=== PATIENT | female | born 1985 ===

== ENCOUNTER 2020-10-06 22:48 | Inpatient (IN) | payer BC ==
[2020-10-06] MEDS ORDERED: Sodium Chloride 0.9% 10 ML SDV IV PRN (23:25)
[2020-10-06] MEDS ORDERED: Nalbuphine 10 MG/1 ML Vial IVPUSH PRN (23:25)
[2020-10-06] MEDS ORDERED: Tranexamic Acid 1,000 MG in Sodium Chloride 0.9% 100 ML IV PRN (23:25)
[2020-10-06] MEDS ORDERED: Butorphanol 1 MG/ML SDV IVPUSH PRN (23:25)
[2020-10-06] MEDS ORDERED: Water For Irrigation,Sterile 1,000 ML Container IRR PRN (23:25)
[2020-10-06] MEDS ORDERED: Carboprost Tromethamine 250 MCG/1 ML Amp IM PRN (23:25)
[2020-10-06] MEDS ORDERED: Sodium Chloride 0.9% 10 ML Syringe FLUSH PRN (23:25)
[2020-10-06] MEDS ORDERED: Lidocaine 1% 50 ML MDV INJECT PRN (23:25)
[2020-10-06] MEDS ORDERED: Misoprostol 200 MCG Tab PO PRN (23:25)
[2020-10-06] MEDS ORDERED: Methylergonovine 0.2 MG/1 ML Amp IM PRN (23:25)
[2020-10-06] MEDS ORDERED: Ampicillin 2 GM in Sodium Chloride 0.9% 100 ML IV ONE (23:25)
[2020-10-06] MEDS ORDERED: Sodium Chloride 0.9% 2.5 ML Syringe FLUSH PRN (23:25)
[2020-10-06] MEDS ORDERED: Oxytocin/0.9 % Sodium Chloride 30 UNIT/500 ML BAG IV SCH (23:30)
[2020-10-06] MEDS ORDERED: Ampicillin 2 GM Vial ONE (23:43)
[2020-10-06] MEDS ORDERED: Sodium Chloride 0.9% 100 ML ONE (23:43)
[2020-10-06] MEDS: Lactated Ringers 1,000 ML IV SCH (23:45)
--- NOTE | 2020-10-06 23:55 | PCM.LDHP ---
L&D History of Present Illness - General Date of Service: 10/06/20 Admit Problem/Dx: Patient Status Order with Admit Dx/Problem 10/06/20 23:25 Patient Status [ADT] Routine Admission Diagnosis/Problem Admission Diagnosis/Problem - History of Present Illness Present Illness Comments:: 35yo at 39w3d presenting with contractions. Patient has been feeling contractions since this morning. She was monitored on L&D until 7PM and her cervix was 2 cm and did not make change. She reports continued to have strong regular contractions. Denies loss of fluid or vaginal bleeding. She is GBS+. Placenta has marginal cord insertion. She was COVID19 positive on 09/27, had mild symptoms with fatigue and myalgia. Her was also positive. Reports symptoms have improved and denies any fevers in the past 24hours. She has completed quarantine. She had otherwise uncomplicated . She had 2 normal term NSVDs prior. - Related Data Allergies/Adverse Reactions: Allergies Allergy/AdvReac Type Severity Reaction Status Date / Time No Known Allergies Allergy Verified 10/02/20 11:34 H&P Review of Systems - Review of Systems: Review Of Systems: See Below General: Reports: No Symptoms HEENT: Reports: No Symptoms Pulmonary: Reports: No Symptoms Cardiovascular: Reports: No Symptoms Gastrointestinal: Reports: No Symptoms Genitourinary: Reports: No Symptoms Musculoskeletal: Reports: No Symptoms Skin: Reports: No Symptoms Psychiatric: Reports: No Symptoms Neurological: Reports: No Symptoms Hematologic/Lymphatic: Reports: No Symptoms Immunologic: Reports: No Symptoms L&D Exam - Exam Exam: See Below - Vital Signs Weight: 207 lb - OB Specific Contraction Frequency (min): 3-5min Contraction Intensity: Moderate to Strong Heart Tones per Min: 130 Heart Rate (FHR) Variability: Moderate (6-25 bmp) - Exam General: Alert, Oriented, Cooperative, Mild Distress HEENT: Conjunctiva Clear, EACs Clear Neck: Supple, Trachea Midline Lungs: Clear to Auscultation, Normal Respiratory Effort Cardiovascular: Regular Rate, Regular Rhythm, Normal S1, Normal S2 GI/Abdominal Exam: Soft, Non-Tender, No Distention Genitourinary: Normal external exam, Other (3-4cm dilated per patient nurse) Back Exam: Normal Inspection, Full Range of Motion Extremities: Normal Inspection, Normal Range of Motion, Non-Tender, No Pedal Edema Skin: Warm, Dry, Intact Psychiatric: Alert, Normal Affect, Normal Mood Problem List Initiated/Reviewed/Updated: Yes Orders Last 24hrs: Active Orders 24 hr Category Date Time Status Patient Status [ADT] Routine ADT 10/06/20 23:25 Active Heart Tones [RC] CONTINUOUS Care 10/06/20 23:25 Active Non Stress Test [RC] PER UNIT ROUTINE Care 10/06/20 23:25 Active May Shower [RC] ASDIRECTED Care 10/06/20 23:25 Active Notify Provider [RC] PRN Care 10/06/20 23:25 Active Up ad Miranda [RC] ASDIRECTED Care 10/06/20 23:25 Active Vaginal Exam [RC] PRN Care 10/06/20 23:25 Active Vital Signs [RC] PER UNIT ROUTINE Care 10/06/20 23:25 Active CBC W/O DIFF,HEMOGRAM [HEME] Routine Lab 10/06/20 23:25 Ordered RPR (SYPHILIS SERO) W/ RFLX [REF] Routine Lab 10/06/20 23:25 Ordered TYPE AND SCREEN [BBK] Routine Lab 10/06/20 23:25 Ordered Ampicillin 2 gm Med 10/06/20 23:25 Active Sodium Chloride 0.9% [Normal Saline] 100 ml IV ONETIME Butorphanol [Stadol] Med 10/06/20 23:25 Active 1 mg IVPUSH Q1H PRN Carboprost Tromethamine [Hemabate DS] Med 10/06/20 23:25 Active 250 mcg IM ASDIRECTED PRN Lactated Ringers [Ringers, Lactated] 1,000 ml Med 10/06/20 23:30 Active IV ASDIRECTED Lidocaine 1% [Xylocaine 1%] Med 10/06/20 23:25 Active 50 ml INJECT ONETIME PRN Methylergonovine [Methergine] Med 10/06/20 23:25 Active 0.2 mg IM ASDIRECTED PRN Nalbuphine [Nubain] Med 10/06/20 23:25 Active 10 mg IVPUSH Q1H PRN Oxytocin/0.9 % Sodium Chloride [Oxytocin 30 Unit/500 ML Med 10/06/20 23:30 Active -NS] 30 unit in 500 ml IV TITRATE Sodium Chloride 0.9% [Normal Saline] Med 10/06/20 23:25 Active 10 ml IV ASDIRECTED PRN Sodium Chloride 0.9% [Saline Flush] Med 10/06/20 23:25 Active 10 ml FLUSH ASDIRECTED PRN Sodium Chloride 0.9% [Saline Flush] Med 10/06/20 23:25 Active 2.5 ml FLUSH ASDIRECTED PRN Tranexamic Acid [Cyklokapron] 1,000 mg Med 10/06/20 23:25 Active Sodium Chloride 0.9% [Normal Saline] 100 ml IV ONETIME Water For Irrigation,Sterile [Sterile Water for Med 10/06/20 23:25 Active Irrigation] 1,000 ml IRR ASDIRECTED PRN miSOPROStoL [Cytotec] Med 10/06/20 23:25 Active 200 mcg PO ONETIME PRN Scalp Electrode [WOMSER] Per Unit Routine Oth 10/06/20 23:25 Ordered Peripheral IV Insertion Adult [OM.PC] Routine Oth 10/06/20 23:25 Ordered Resuscitation Status Routine Resus Stat 10/06/20 23:25 Ordered Medication Orders Butorphanol Tartrate (Butorphanol 1 Mg/Ml Sdv) 1 mg IVPUSH Q1H PRN PRN Reason: Pain Carboprost Tromethamine (Carboprost Tromethamine 250 Mcg/1 Ml Amp) 250 mcg IM ASDIRECTED PRN PRN Reason: Post Hemorrhage Oxytocin/Sodium Chloride (Oxytocin 30 Unit/500 Ml-Ns) 30 unit in 500 mls @ 500 mls/hr IV TITRATE [facility] Tranexamic Acid 1,000 mg/ (Sodium Chloride) 110 mls @ 660 mls/hr IV ONETIME PRN PRN Reason: Bleeding Ampicillin Sodium 2 gm/ Sodium (Chloride) 100 mls @ 200 mls/hr IV ONETIME ONE Stop: 10/06/20 23:54 Lactated Ringer's (Ringers, Lactated) 1,000 mls @ 150 mls/hr IV ASDIRECTED [facility] Lidocaine HCl (Lidocaine 1% 50 Ml Mdv) 50 ml INJECT ONETIME PRN PRN Reason: Laceration repair Methylergonovine Maleate (Methylergonovine 0.2 Mg/1 Ml Amp) 0.2 mg IM ASDIRECTED PRN PRN Reason: Post Hemorrhage Misoprostol (Misoprostol 200 Mcg Tab) 200 mcg PO ONETIME PRN PRN Reason: Post Hemorrhage Nalbuphine HCl (Nalbuphine 10 Mg/1 Ml Vial) 10 mg IVPUSH Q1H PRN PRN Reason: Pain (severe 7-10) Sodium Chloride (Sodium Chloride 0.9% 10 Ml Syringe) 10 ml FLUSH ASDIRECTED PRN PRN Reason: Keep Vein Open Sodium Chloride (Sodium Chloride 0.9% 2.5 Ml Syringe) 2.5 ml FLUSH ASDIRECTED PRN PRN Reason: Keep Vein Open Sodium Chloride (Sodium Chloride 0.9% 10 Ml Sdv) 10 ml IV ASDIRECTED PRN PRN Reason: IV Use Sterile Water (Water For Irrigation,Sterile 1,000 Ml Container) 1,000 ml IRR ASDIRECTED PRN PRN Reason: delivery Assessment/Plan Comment:: 35yo at 38w3d presenting with labor. Patient has regular contractions and making cervical change. - Will admit to L&D, will complete CBC, T&S, RPR. - pelvic 3-4cm, membranes intact - Cat 1 tracing - GBS positive, will start ampicillin - COVID 19 positive on 09/27, symptoms improving, afebrile past 24hours. Completed quarantine. - desires epidural
[2020-10-07] MEDS ORDERED: Ropivacaine 0.2% PF 2 MG/ML 20 ML SDV ONE (00:37)
[2020-10-07] MEDS ORDERED: fentaNYL 100 MCG/2 ML SDV ONE (00:37)
[2020-10-07] MEDS ORDERED: Ropivacaine HCl/PF 100 ML ONE ×2 (00:37→10:20)
[2020-10-07] MEDS: Lactated Ringers 1,000 ML IV SCH ×2 (01:17→07:24)
--- NOTE | 2020-10-07 01:27 | PCM.PREANE ---
Preanesthetic Assessment - Anesthesia/Transfusion/Family Hx Anesthesia History: Prior Anesthesia Without Reaction Family History of Anesthesia Reaction: No Transfusion History: No Prior Transfusion(s) Intubation History: Unknown - Review of Systems General: No Symptoms Pulmonary: No Symptoms Cardiovascular: No Symptoms Gastrointestinal: No Symptoms Neurological: No Symptoms Other: Reports: Anxiety - Physical Assessment NPO Status Date: 10/07/20 NPO Status Time: 01:24 Height: 1.65 m Weight: 93.894 kg ASA Class: 2 Mental Status: Alert & Oriented x3 Airway Class: Mallampati = 2 Dentition: Reports: Normal Dentition Thyro-Mental Finger Breadths: 3 Mouth Opening Finger Breadths: 3 ROM/Head Extension: Full Lungs: Clear to Auscultation Cardiovascular: Regular Rate - Lab Values: Laboratory Last Values WBC 8.38 K/uL (4.0-11.0) 10/06/20 23: RBC 4.43 M/uL (4.30-5.90) 10/06/20 23:25 Hgb 12.9 g/dL (12.0-16.0) 10/06/20 23:25 Hct 38.1 % (36.0-46.0) 10/06/20 23:25 MCV 86.0 fL (80.0-98.0) 10/06/20 23:25 MCH 29.1 pg (27.0-32.0) 10/06/20 23: MCHC 33.9 g/dL (31.0-37.0) 10/06/20 23:25 RDW Std Deviation 45.0 fl (28.0-62.0) 10/06/20 23: RDW Coeff of Melinda 14 % (11.0-15.0) 10/06/20 23: Plt Count 323 K/uL (150-400) 10/06/20 23:25 MPV 9.30 fL (7.40-12.00) 10/06/20 23: Nucleated RBC % 0.0 /100WBC 10/06/20 23:25 Nucleated RBCs # 0 K/uL 10/06/20 23:25 Blood Type O POSITIVE 10/06/20 23: Antibody Screen NEGATIVE 10/06/20 23: - Allergies Allergies/Adverse Reactions: Allergies Allergy/AdvReac Type Severity Reaction Status Date / Time No Known Allergies Allergy Verified 10/02/20 11:34 - Blood Blood Available: No Product(s) Available: None - Anesthesia Plan Pre-Op Medication Ordered: None - Acknowledgements Anesthesia Type Planned: Epidural Pt an Appropriate Candidate for the Planned Anesthesia: Yes Alternatives and Risks of Anesthesia Discussed w Pt/Guardian: Yes Pt/Guardian Understands and Agrees with Anesthesia Plan: Yes Additional Comments: active labor. Pain 10/10 with contractions. Discussed, ? answered, chart reviewed, accepts, wishes to proceed, permit signed. PreAnesthesia Questionnaire - CURRENT (IN HOUSE) MEDS Current Meds: Current Medications Butorphanol Tartrate (Butorphanol 1 Mg/Ml Sdv) 1 mg IVPUSH Q1H PRN PRN Reason: Pain Carboprost Tromethamine (Carboprost Tromethamine 250 Mcg/1 Ml Amp) 250 mcg IM ASDIRECTED PRN PRN Reason: Post Hemorrhage Oxytocin/Sodium Chloride (Oxytocin 30 Unit/500 Ml-Ns) 30 unit in 500 mls @ 500 mls/hr IV TITRATE [facility] Tranexamic Acid 1,000 mg/ (Sodium Chloride) 110 mls @ 660 mls/hr IV ONETIME PRN PRN Reason: Bleeding Lactated Ringer's (Ringers, Lactated) 1,000 mls @ 150 mls/hr IV ASDIRECTED [facility] Last Admin: 10/07/20 01:17 Dose: 500 mls/hr Documented by: Lidocaine HCl (Lidocaine 1% 50 Ml Mdv) 50 ml INJECT ONETIME PRN PRN Reason: Laceration repair Methylergonovine Maleate (Methylergonovine 0.2 Mg/1 Ml Amp) 0.2 mg IM ASDIRECTED PRN PRN Reason: Post Hemorrhage Misoprostol (Misoprostol 200 Mcg Tab) 200 mcg PO ONETIME PRN PRN Reason: Post Hemorrhage Nalbuphine HCl (Nalbuphine 10 Mg/1 Ml Vial) 10 mg IVPUSH Q1H PRN PRN Reason: Pain (severe 7-10) Sodium Chloride (Sodium Chloride 0.9% 10 Ml Syringe) 10 ml FLUSH ASDIRECTED PRN PRN Reason: Keep Vein Open Sodium Chloride (Sodium Chloride 0.9% 2.5 Ml Syringe) 2.5 ml FLUSH ASDIRECTED PRN PRN Reason: Keep Vein Open Sodium Chloride (Sodium Chloride 0.9% 10 Ml Sdv) 10 ml IV ASDIRECTED PRN PRN Reason: IV Use Sterile Water (Water For Irrigation,Sterile 1,000 Ml Container) 1,000 ml IRR ASDIRECTED PRN PRN Reason: delivery Discontinued Medications Ampicillin Sodium (Ampicillin 2 Gm Vial) Confirm Administered Dose 2 gm .ROUTE .STK-MED ONE Stop: 10/06/20 23:44 Fentanyl (Fentanyl 100 Mcg/2 Ml Sdv) Confirm Administered Dose 100 mcg .ROUTE .STK-MED ONE Stop: 10/07/20 00:38 Ampicillin Sodium 2 gm/ Sodium (Chloride) 100 mls @ 200 mls/hr IV ONETIME ONE Stop: 10/06/20 23:54 Last Admin: 10/06/20 23:45 Dose: 200 mls/hr Documented by: Sodium Chloride (Normal Saline) Confirm Administered Dose 100 mls @ as directed .ROUTE .STK-MED ONE Stop: 10/06/20 23:44 Ropivacaine (Naropin 0.2%) Confirm Administered Dose 100 mls @ as directed .ROUTE .STK-MED ONE Stop: 10/07/20 00:38 Ropivacaine (Ropivacaine 0.2% Pf 2 Mg/Ml 20 Ml Sdv) Confirm Administered Dose 20 ml .ROUTE .STK-MED ONE Stop: 10/07/20 00:38
[2020-10-07] MEDS: Ampicillin 1 GM in Sodium Chloride 0.9% 50 ML IV SCH ×3 (03:10→11:00)
[2020-10-07] MEDS ORDERED: Oxytocin/0.9 % Sodium Chloride 30 UNIT/500 ML BAG IV SCH (09:30)
--- NOTE | 2020-10-07 10:32 | PCM.SN.2 ---
- Free Text/Narrative Note: Doing well. Replaced epidural bag. Analgesia good. Legs numb. Will continue same settings.
[2020-10-07 10:42] LABS: BLOOD UREA NITROGEN,BUN 6 mg/dL (7.0-18.0); CHLORIDE,CL 105 mmol/L (98-107); GLUCOSE RANDOM 80 mg/dL (74-106); POTASSIUM,K 3.2 mmol/L (3.5-5.1); SODIUM,NA 140 mmol/L (136-145)
[2020-10-07] MEDS ORDERED: Oxytocin 10 Units/1 ML SDV ONE (14:28)
[2020-10-07] MEDS ORDERED: Ibuprofen 400 MG Tab PO PRN (14:57)
[2020-10-07] MEDS ORDERED: Lanolin 100% Cream 7 GM Tube TOP PRN (14:57)
[2020-10-07] MEDS ORDERED: Witch Hazel Medicated Pads 40/Jar TOP PRN (14:57)
[2020-10-07] MEDS ORDERED: oxyCODONE 5 MG Tab PO PRN (14:57)
[2020-10-07] MEDS ORDERED: Benzocaine/Menthol 20%-0.5% Spray 78 GM Cannister TOP PRN (14:57)
[2020-10-07] MEDS ORDERED: Acetaminophen 500 MG Tab PO PRN ×2 (14:57)
[2020-10-07] MEDS ORDERED: Bisacodyl 10 MG Supp RECTAL PRN (14:57)
--- NOTE | 2020-10-07 15:05 | PCM.DEL ---
L & D Note - General Info Date of Service: 10/07/20 - Delivery Note Labor: Augmented by Oxytocin Delivery Outcome: Livebirth Delivery Method: Spontaneous Vaginal Delivery-Single Presentation: Left Occiput Anterior (SHANTI) Nuchal Cord: None Anesthesia Type: Combined Spinal Epidural Amniotic Fluid Description: Meconium Stained Episiotomy Type: None Laceration: None Placenta: Manual Removal Cord: 3 Vessels Estimated Blood Loss: 200 Resuscitation Needed: No Score 1 min: 8 Score 5 min: 9 Second Stage Interventions: Reports: Pushing Effectively Delivery Comments (Free Text/Narrative):: Live male delivered at 1407 , 8/9 , weight 3360g IM pitocin given due to infiltrated IV line Manual removal of placenta Marginal insertion of placenta cord - General Info Date of Service: 10/07/20 Admission Dx/Problem (Free Text): Patient Status Order with Admit Dx/Problem 10/06/20 23:25 Patient Status [ADT] Routine Admission Diagnosis/Problem Admission Diagnosis/Problem - Patient Data Weight - Most Recent: 93.894 kg I&O - Last 24 Hours: Intake & Output 10/07/20 10/07/20 10/07/20 06:59 14:59 22:59 Intake Total 1025 Balance 1025 Lab Results Last 24 Hours: Laboratory Results - last 24 hr 10/06/20 10/06/20 10/07/20 Range/Units 23:25 23:25 09:39 WBC 8.38 (4.0-11.0) K/uL RBC 4.43 (4.30-5.90) M/uL Hgb 12.9 (12.0-16.0) g/dL Hct 38.1 (36.0-46.0) % MCV 86.0 (80.0-98.0) fL MCH 29.1 (27.0-32.0) pg MCHC 33.9 (31.0-37.0) g/dL RDW Std Deviation 45.0 (28.0-62.0) fl RDW Coeff of Melinda 14 (11.0-15.0) % Plt Count 323 (150-400) K/uL MPV 9.30 (7.40-12.00) fL Nucleated RBC % 0.0 /100WBC Nucleated RBCs # 0 K/uL Sodium (136-145) mmol/L Potassium (3.5-5.1) mmol/L Chloride (98-107) mmol/L Carbon Dioxide (21.0-32.0) mmol/L BUN (7.0-18.0) mg/dL Creatinine (0.6-1.0) mg/dL Est Cr Clr Drug Dosing mL/min Estimated GFR (MDRD) ml/min Glucose (74-106) mg/dL Uric Acid (2.6-7.2) mg/dL Calcium (8.5-10.1) mg/dL Total Bilirubin (0.2-1.0) mg/dL AST (15-37) IU/L ALT (14-63) IU/L Alkaline Phosphatase (46-116) U/L Total Protein (6.4-8.2) g/dL Albumin (3.4-5.0) g/dL Globulin (2.6-4.0) g/dL Albumin/Globulin Ratio (0.9-1.6) Ur Random Creatinine 67.2 mg/dL U Random Total Protein 336.4 H (<11.9) mg/dL Protein/Creatinin Ratio 5.0 Blood Type O POSITIVE Antibody Screen NEGATIVE 10/07/20 Range/Units 09:57 WBC (4.0-11.0) K/uL RBC (4.30-5.90) M/uL Hgb (12.0-16.0) g/dL Hct (36.0-46.0) % MCV (80.0-98.0) fL MCH (27.0-32.0) pg MCHC (31.0-37.0) g/dL RDW Std Deviation (28.0-62.0) fl RDW Coeff of Melinda (11.0-15.0) % Plt Count (150-400) K/uL MPV (7.40-12.00) fL Nucleated RBC % /100WBC Nucleated RBCs # K/uL Sodium 140 (136-145) mmol/L Potassium 3.2 L (3.5-5.1) mmol/L Chloride 105 (98-107) mmol/L Carbon Dioxide 23.0 (21.0-32.0) mmol/L BUN 6 L (7.0-18.0) mg/dL Creatinine 1.0 (0.6-1.0) mg/dL Est Cr Clr Drug Dosing 72.00 mL/min Estimated GFR (MDRD) > 60.0 ml/min Glucose 80 (74-106) mg/dL Uric Acid 3.8 (2.6-7.2) mg/dL Calcium 8.6 (8.5-10.1) mg/dL Total Bilirubin 0.5 (0.2-1.0) mg/dL AST 42 H (15-37) IU/L ALT 82 H (14-63) IU/L Alkaline Phosphatase 239 H (46-116) U/L Total Protein 6.8 (6.4-8.2) g/dL Albumin 2.2 L (3.4-5.0) g/dL Globulin 4.6 H (2.6-4.0) g/dL Albumin/Globulin Ratio 0.5 L (0.9-1.6) Ur Random Creatinine mg/dL U Random Total Protein (<11.9) mg/dL Protein/Creatinin Ratio Blood Type Antibody Screen Med Orders - Current: Current Medications Acetaminophen (Acetaminophen 500 Mg Tab) 500 mg PO Q4H PRN PRN Reason: Pain Acetaminophen (Acetaminophen 500 Mg Tab) 1,000 mg PO Q4H PRN PRN Reason: Pain Benzocaine/Menthol (Benzocaine/Menthol 20%-0.5% [place] 78 Gm Cannister) 78 gm TOP ASDIRECTED PRN PRN Reason: Perineal Comfort Measure Bisacodyl (Bisacodyl 10 Mg Supp) 10 mg RECTAL ONETIME PRN PRN Reason: Constipation Butorphanol Tartrate (Butorphanol 1 Mg/Ml Sdv) 1 mg IVPUSH Q1H PRN PRN Reason: Pain Carboprost Tromethamine (Carboprost Tromethamine 250 Mcg/1 Ml Amp) 250 mcg IM ASDIRECTED PRN PRN Reason: Post Hemorrhage Docusate Sodium (Docusate Sodium 100 Mg Cap) 100 mg PO BID PRN PRN Reason: Constipation Emollient Ointment (Lanolin 100% Cream 7 Gm Tube) 0 gm TOP ASDIRECTED PRN PRN Reason: Sore Nipples Oxytocin/Sodium Chloride (Oxytocin 30 Unit/500 Ml-Ns) 30 unit in 500 mls @ 500 mls/hr IV TITRATE [facility] Tranexamic Acid 1,000 mg/ (Sodium Chloride) 110 mls @ 660 mls/hr IV ONETIME PRN PRN Reason: Bleeding Lactated Ringer's (Ringers, Lactated) 1,000 mls @ 150 mls/hr IV ASDIRECTED [facility] Last Admin: 10/07/20 07:24 Dose: 150 mls/hr Documented by: Oxytocin/Sodium Chloride (Oxytocin 30 Unit/500 Ml-Ns) 30 unit in 500 mls @ 2 mls/hr IV TITRATE [facility]; Protocol Last Infusion: 10/07/20 13:44 Dose: 14 munits/min, 14 mls/hr Documented by: Ibuprofen (Ibuprofen 400 Mg Tab) 400 mg PO Q4H PRN PRN Reason: Pain Ibuprofen (Ibuprofen 800 Mg Tab) 800 mg PO Q6H PRN PRN Reason: Pain Lidocaine HCl (Lidocaine 1% 50 Ml Mdv) 50 ml INJECT ONETIME PRN PRN Reason: Laceration repair Methylergonovine Maleate (Methylergonovine 0.2 Mg/1 Ml Amp) 0.2 mg IM ASDIRECTED PRN PRN Reason: Post Hemorrhage Misoprostol (Misoprostol 200 Mcg Tab) 200 mcg PO ONETIME PRN PRN Reason: Post Hemorrhage Nalbuphine HCl (Nalbuphine 10 Mg/1 Ml Vial) 10 mg IVPUSH Q1H PRN PRN Reason: Pain (severe 7-10) Oxycodone HCl (Oxycodone 5 Mg Tab) 5 mg PO Q2H PRN PRN Reason: Pain Sodium Chloride (Sodium Chloride 0.9% 10 Ml Syringe) 10 ml FLUSH ASDIRECTED PRN PRN Reason: Keep Vein Open Sodium Chloride (Sodium Chloride 0.9% 2.5 Ml Syringe) 2.5 ml FLUSH ASDIRECTED PRN PRN Reason: Keep Vein Open Sodium Chloride (Sodium Chloride 0.9% 10 Ml Sdv) 10 ml IV ASDIRECTED PRN PRN Reason: IV Use Sterile Water (Water For Irrigation,Sterile 1,000 Ml Container) 1,000 ml IRR ASDIRECTED PRN PRN Reason: delivery Witch Nydia (Witch Nydia Medicated Pads 40/Jar) 1 pad TOP ASDIRECTED PRN PRN Reason: comfort care Discontinued Medications Ampicillin Sodium (Ampicillin 2 Gm Vial) Confirm Administered Dose 2 gm .ROUTE .STK-MED ONE Stop: 10/06/20 23:44 Fentanyl (Fentanyl 100 Mcg/2 Ml Sdv) Confirm Administered Dose 100 mcg .ROUTE .STK-MED ONE Stop: 10/07/20 00:38 Ampicillin Sodium 2 gm/ Sodium (Chloride) 100 mls @ 200 mls/hr IV ONETIME ONE Stop: 10/06/20 23:54 Last Admin: 10/06/20 23:45 Dose: 200 mls/hr Documented by: Sodium Chloride (Normal Saline) Confirm Administered Dose 100 mls @ as directed .ROUTE .STK-MED ONE Stop: 10/06/20 23:44 Ropivacaine (Naropin 0.2%) Confirm Administered Dose 100 mls @ as directed .ROUTE .STK-MED ONE Stop: 10/07/20 00:38 Ampicillin Sodium 1 gm/ Sodium (Chloride) 50 mls @ 100 mls/hr IV Q4H [facility] Last Admin: 10/07/20 11:00 Dose: 100 mls/hr Documented by: Ropivacaine (Naropin 0.2%) Confirm Administered Dose 100 mls @ as directed .ROUTE .STK-MED ONE Stop: 10/07/20 10:21 Oxytocin (Oxytocin 10 Units/1 Ml Sdv) Confirm Administered Dose 10 unit .ROUTE .STK-MED ONE Stop: 10/07/20 14:29 Ropivacaine (Ropivacaine 0.2% Pf 2 Mg/Ml 20 Ml Sdv) Confirm Administered Dose 20 ml .ROUTE .STK-MED ONE Stop: 10/07/20 00:38 - Problem List & Annotations (1) Vaginal delivery SNOMED Code(s): 948991713 Code(s): O80 - ENCOUNTER FOR FULL-TERM UNCOMPLICATED DELIVERY Status: Acute Current Visit: Yes - Problem List Review Problem List Initiated/Reviewed/Updated: Yes - My Orders Last 24 Hours: My Active Orders 10/07/20 09:30 Oxytocin/0.9 % Sodium Chloride [Oxytocin 30 Unit/500 ML-NS] 30 unit in 500 ml IV TITRATE 10/07/20 14:57 Patient Status [ADT] Routine May Shower [RC] ASDIRECTED Up ad Miranda [RC] ASDIRECTED Vital Signs [RC] PER UNIT ROUTINE Acetaminophen [Tylenol Extra Strength] 1,000 mg PO Q4H PRN Acetaminophen [Tylenol Extra Strength] 500 mg PO Q4H PRN Benzocaine/Menthol [Dermoplast Pain Relief 20%-0.5% [place]] 78 gm TOP ASDIRECTED PRN Docusate Sodium [Colace] 100 mg PO BID PRN Ibuprofen [Motrin] 400 mg PO Q4H PRN Ibuprofen [Motrin] 800 mg PO Q6H PRN Lanolin [Lansinoh HPA] See Dose Instructions TOP ASDIRECTED PRN bisacodyL [Dulcolax] 10 mg RECTAL ONETIME PRN oxyCODONE 5 mg PO Q2H PRN witch Nydia [Tucks] 1 pad TOP ASDIRECTED PRN Assess Lochia [WOMSER] Per Unit Routine Assess Uterine Involution [WOMSER] Per Unit Routine Peripheral IV Discontinue [OM.PC] Routine Resuscitation Status Routine 10/07/20 14:59 BLOOD GAS ARTERIAL UMBILICAL [BG] Routine BLOOD GAS VENOUS UMBILICAL [BG] Routine 10/08/20 05:11 BASIC METABOLIC PANEL,BMP [CHEM] AM CBC WITH AUTO DIFF [HEME] AM - Assessment Assessment:: 35yo @ 38w4d , s/p with Manual removal of placenta now Para 3 Mild Preclampsia ( Elevated PCR AST and ALT , normal creatinine Covid Positive ( 09/27) Normal [place] Rubella Immune GBS positive received ampicillin
[2020-10-07] MEDS: ceFAZolin 2 GM in Premix Bag 1 BAG IV SCH ×2 (15:59→23:54)
[2020-10-07] MEDS: Docusate Sodium 100 MG Cap PO PRN (17:00)
[2020-10-07] MEDS: Ibuprofen 800 MG Tab PO PRN (22:53)
[2020-10-08] MEDS: Ibuprofen 800 MG Tab PO PRN (05:15)
[2020-10-08 06:22] LABS: BLOOD UREA NITROGEN,BUN 10 mg/dL (7.0-18.0); CARBON DIOXIDE,CO2 24.1 mmol/L (21.0-32.0); CHLORIDE,CL 108 mmol/L (98-107); GLUCOSE RANDOM 78 mg/dL (74-106); POTASSIUM,K 3.1 mmol/L (3.5-5.1); SODIUM,NA 142 mmol/L (136-145)
--- NOTE | 2020-10-08 06:58 | PCM48HPAN ---
Post Anesthesia Note - EVALUATION WITHIN 48HRS OF ANESTHETIC Vital Signs in Normal Range: Yes Patient Participated in Evaluation: Yes Respiratory Function Stable: Yes Airway Patent: Yes Cardiovascular Function Stable: Yes Hydration Status Stable: Yes Pain Control Satisfactory: Yes Nausea and Vomiting Control Satisfactory: Yes Mental Status Recovered: Yes Vital Signs: Last Vital Signs Temp 36.4 C 10/08/20 04:15 Pulse 76 10/08/20 04:15 Resp 16 10/08/20 04:15 BP 112/73 10/08/20 04:15 Pulse Ox 97 10/08/20 04:15
[2020-10-08] MEDS: ceFAZolin 2 GM in Premix Bag 1 BAG IV SCH (08:31)
--- NOTE | 2020-10-08 11:00 | PCM.PNPP ---
- General Info Date of Service: 10/08/20 Admission Dx/Problem (Free Text): Patient Status Order with Admit Dx/Problem Subjective Update: Patient seen at bedside , she is ambulating , voiding and tolerating regular diet She denies any headache , RUQ pain and BV She is and supplementing Functional Status: Reports: Pain Controlled, Tolerating Diet, Ambulating, Urinating - Review of Systems General: Reports: No Symptoms HEENT: Reports: No Symptoms Pulmonary: Reports: No Symptoms Cardiovascular: Reports: No Symptoms Gastrointestinal: Reports: No Symptoms Genitourinary: Reports: No Symptoms Musculoskeletal: Reports: No Symptoms Skin: Reports: No Symptoms Neurological: Reports: No Symptoms Psychiatric: Reports: No Symptoms - General Info Date of Service: 10/08/20 - Patient Data Vital Signs - Most Recent: Last Vital Signs Temp 36.4 C 10/08/20 04:15 Pulse 76 10/08/20 04:15 Resp 16 10/08/20 04:15 BP 112/73 10/08/20 04:15 Pulse Ox 97 10/08/20 04:15 Weight - Most Recent: 93.894 kg I&O - Last 24 Hours: Intake & Output 10/07/20 10/08/20 10/08/20 22:59 06:59 14:59 Output Total 700 Balance -700 Lab Results - Last 24 Hours: Laboratory Results - last 24 hr 10/07/20 10/07/20 10/08/20 Range/Units 09:57 14:07 05:25 WBC 17.58 H (4.0-11.0) K/uL RBC 3.81 L (4.30-5.90) M/uL Hgb 11.1 L (12.0-16.0) g/dL Hct 33.1 L (36.0-46.0) % MCV 86.9 (80.0-98.0) fL MCH 29.1 (27.0-32.0) pg MCHC 33.5 (31.0-37.0) g/dL RDW Std Deviation 46.6 (28.0-62.0) fl RDW Coeff of Melinda 15 (11.0-15.0) % Plt Count 289 (150-400) K/uL MPV 9.10 (7.40-12.00) fL Neut % (Auto) 68.5 (48.0-80.0) % Lymph % (Auto) 17.7 (16.0-40.0) % [place] % (Auto) 13.4 (0.0-15.0) % Eos % (Auto) 0.3 (0.0-7.0) % Baso % (Auto) 0.1 (0.0-1.5) % Neut # (Auto) 12.1 H (1.4-5.7) K/uL Lymph # (Auto) 3.1 H (0.6-2.4) K/uL [place] # (Auto) 2.4 H (0.0-0.8) K/uL Eos # (Auto) 0.1 (0.0-0.7) K/uL Baso # (Auto) 0.0 (0.0-0.1) K/uL Nucleated RBC % 0.0 /100WBC Nucleated RBCs # 0 K/uL Cord VBG pH 7.40 (7.25-7.45) Cord VBG Base Excess -7 (-10--2) Sodium 140 (136-145) mmol/L Potassium 3.2 L (3.5-5.1) mmol/L Chloride 105 (98-107) mmol/L Carbon Dioxide 23.0 (21.0-32.0) mmol/L BUN 6 L (7.0-18.0) mg/dL Creatinine 1.0 (0.6-1.0) mg/dL Est Cr Clr Drug Dosing 72.00 mL/min Estimated GFR (MDRD) > 60.0 ml/min Glucose 80 (74-106) mg/dL Uric Acid 3.8 (2.6-7.2) mg/dL Calcium 8.6 (8.5-10.1) mg/dL Total Bilirubin 0.5 (0.2-1.0) mg/dL AST 42 H (15-37) IU/L ALT 82 H (14-63) IU/L Alkaline Phosphatase 239 H (46-116) U/L Total Protein 6.8 (6.4-8.2) g/dL Albumin 2.2 L (3.4-5.0) g/dL Globulin 4.6 H (2.6-4.0) g/dL Albumin/Globulin Ratio 0.5 L (0.9-1.6) 04/24/21 Range/Units 05:25 WBC (4.0-11.0) K/uL RBC (4.30-5.90) M/uL Hgb (12.0-16.0) g/dL Hct (36.0-46.0) % MCV (80.0-98.0) fL MCH (27.0-32.0) pg MCHC (31.0-37.0) g/dL RDW Std Deviation (28.0-62.0) fl RDW Coeff of Melinda (11.0-15.0) % Plt Count (150-400) K/uL MPV (7.40-12.00) fL Neut % (Auto) (48.0-80.0) % Lymph % (Auto) (16.0-40.0) % [place] % (Auto) (0.0-15.0) % Eos % (Auto) (0.0-7.0) % Baso % (Auto) (0.0-1.5) % Neut # (Auto) (1.4-5.7) K/uL Lymph # (Auto) (0.6-2.4) K/uL [place] # (Auto) (0.0-0.8) K/uL Eos # (Auto) (0.0-0.7) K/uL Baso # (Auto) (0.0-0.1) K/uL Nucleated RBC % /100WBC Nucleated RBCs # K/uL Cord VBG pH (7.25-7.45) Cord VBG Base Excess (-10--2) Sodium 142 (136-145) mmol/L Potassium 3.1 L (3.5-5.1) mmol/L Chloride 108 H (98-107) mmol/L Carbon Dioxide 24.1 (21.0-32.0) mmol/L BUN 10 (7.0-18.0) mg/dL Creatinine 0.9 (0.6-1.0) mg/dL Est Cr Clr Drug Dosing 80.00 mL/min Estimated GFR (MDRD) > 60.0 ml/min Glucose 78 (74-106) mg/dL Uric Acid (2.6-7.2) mg/dL Calcium 8.6 (8.5-10.1) mg/dL Total Bilirubin (0.2-1.0) mg/dL AST (15-37) IU/L ALT (14-63) IU/L Alkaline Phosphatase (46-116) U/L Total Protein (6.4-8.2) g/dL Albumin (3.4-5.0) g/dL Globulin (2.6-4.0) g/dL Albumin/Globulin Ratio (0.9-1.6) Med Orders - Current: Current Medications Acetaminophen (Acetaminophen 500 Mg Tab) 500 mg PO Q4H PRN PRN Reason: Pain Acetaminophen (Acetaminophen 500 Mg Tab) 1,000 mg PO Q4H PRN PRN Reason: Pain Last Admin: 10/07/20 20:54 Dose: 1,000 mg Documented by: Benzocaine/Menthol (Benzocaine/Menthol 20%-0.5% [place] 78 Gm Cannister) 78 gm TOP ASDIRECTED PRN PRN Reason: Perineal Comfort Measure Last Admin: 10/07/20 17:00 Dose: 1 bottle Documented by: Bisacodyl (Bisacodyl 10 Mg Supp) 10 mg RECTAL ONETIME PRN PRN Reason: Constipation Butorphanol Tartrate (Butorphanol 1 Mg/Ml Sdv) 1 mg IVPUSH Q1H PRN PRN Reason: Pain Carboprost Tromethamine (Carboprost Tromethamine 250 Mcg/1 Ml Amp) 250 mcg IM ASDIRECTED PRN PRN Reason: Post Hemorrhage Docusate Sodium (Docusate Sodium 100 Mg Cap) 100 mg PO BID PRN PRN Reason: Constipation Emollient Ointment (Lanolin 100% Cream 7 Gm Tube) 0 gm TOP ASDIRECTED PRN PRN Reason: Sore Nipples Last Admin: 10/07/20 17:00 Dose: 1 applic Documented by: Oxytocin/Sodium Chloride (Oxytocin 30 Unit/500 Ml-Ns) 30 unit in 500 mls @ 500 mls/hr IV TITRATE LAVONNE Tranexamic Acid 1,000 mg/ (Sodium Chloride) 110 mls @ 660 mls/hr IV ONETIME PRN PRN Reason: Bleeding Lactated Ringer's (Ringers, Lactated) 1,000 mls @ 150 mls/hr IV ASDIRECTED LAVONNE Last Admin: 10/07/20 07:24 Dose: 150 mls/hr Documented by: Oxytocin/Sodium Chloride (Oxytocin 30 Unit/500 Ml-Ns) 30 unit in 500 mls @ 2 ml s/hr IV TITRATE LAVONNE; Protocol Last Infusion: 10/07/20 13:44 Dose: 14 munits/min, 14 mls/hr Documented by: Ibuprofen (Ibuprofen 400 Mg Tab) 400 mg PO Q4H PRN PRN Reason: Pain Ibuprofen (Ibuprofen 800 Mg Tab) 800 mg PO Q6H PRN PRN Reason: Pain Last Admin: 10/08/20 05:15 Dose: 800 mg Documented by: Lidocaine HCl (Lidocaine 1% 50 Ml Mdv) 50 ml INJECT ONETIME PRN PRN Reason: Laceration repair Methylergonovine Maleate (Methylergonovine 0.2 Mg/1 Ml Amp) 0.2 mg IM ASDIRECTED PRN PRN Reason: Post Hemorrhage Misoprostol (Misoprostol 200 Mcg Tab) 200 mcg PO ONETIME PRN PRN Reason: Post Hemorrhage Nalbuphine HCl (Nalbuphine 10 Mg/1 Ml Vial) 10 mg IVPUSH Q1H PRN PRN Reason: Pain (severe 7-10) Oxycodone HCl (Oxycodone 5 Mg Tab) 5 mg PO Q2H PRN PRN Reason: Pain Sodium Chloride (Sodium Chloride 0.9% 10 Ml Syringe) 10 ml FLUSH ASDIRECTED PRN PRN Reason: Keep Vein Open Sodium Chloride (Sodium Chloride 0.9% 2.5 Ml Syringe) 2.5 ml FLUSH ASDIRECTED PRN PRN Reason: Keep Vein Open Sodium Chloride (Sodium Chloride 0.9% 10 Ml Sdv) 10 ml IV ASDIRECTED PRN PRN Reason: IV Use Sterile Water (Water For Irrigation,Sterile 1,000 Ml Container) 1,000 ml IRR ASDIRECTED PRN PRN Reason: delivery Witch Nydia (Witch Nydia Medicated Pads 40/Jar) 1 pad TOP ASDIRECTED PRN PRN Reason: comfort care Last Admin: 10/07/20 16:59 Dose: 1 applic Documented by: Discontinued Medications Ampicillin Sodium (Ampicillin 2 Gm Vial) Confirm Administered Dose 2 gm .ROUTE .STK-MED ONE Stop: 10/06/20 23:44 Fentanyl (Fentanyl 100 Mcg/2 Ml Sdv) Confirm Administered Dose 100 mcg .ROUTE .STK-MED ONE Stop: 10/07/20 00:38 Ampicillin Sodium 2 gm/ Sodium (Chloride) 100 mls @ 200 mls/hr IV ONETIME ONE Stop: 10/06/20 23:54 Last Admin: 10/06/20 23:45 Dose: 200 mls/hr Documented by: Sodium Chloride (Normal Saline) Confirm Administered Dose 100 mls @ as directed .ROUTE .STK-MED ONE Stop: 10/06/20 23:44 Ropivacaine (Naropin 0.2%) Confirm Administered Dose 100 mls @ as directed .R OUTE .STK-MED ONE Stop: 10/07/20 00:38 Ampicillin Sodium 1 gm/ Sodium (Chloride) 50 mls @ 100 mls/hr IV Q4H [facility] Last Admin: 10/07/20 11:00 Dose: 100 mls/hr Documented by: Ropivacaine (Naropin 0.2%) Confirm Administered Dose 100 mls @ as directed .ROUTE .STK-MED ONE Stop: 10/07/20 10:21 Cefazolin Sodium/Dextrose 2 gm (/ Premix) 50 mls @ 100 mls/hr IV Q8H LAVONNE Stop: 10/08/20 08:14 Last Admin: 10/08/20 08:31 Dose: 100 mls/hr Documented by: Oxytocin (Oxytocin 10 Units/1 Ml Sdv) Confirm Administered Dose 10 unit .ROUTE .STK-MED ONE Stop: 10/07/20 14:29 Last Admin: 10/07/20 14:30 Dose: 10 unit Documented by: Ropivacaine (Ropivacaine 0.2% Pf 2 Mg/Ml 20 Ml Sdv) Confirm Administered Dose 20 ml .ROUTE .STK-MED ONE Stop: 10/07/20 00:38 - Recovery Exam Fundal Tone: Firm Fundal Level: At Umbilicus Fundal Placement: Midline Lochia Amount: Scant Lochia Color: Rubra/Red Perineum Description: Intact, Minimal Bruising/Swelling Episiotomy/Laceration: None Bladder Status: Voiding Urinary Elimination: Voided - Exam General: Alert HEENT: Pupils Equal Neck: Supple Lungs: Clear to Auscultation Cardiovascular: Regular Rate, Regular Rhythm GI/Abdominal Exam: Normal Bowel Sounds Extremities: Normal Inspection Neurological: No New Focal Deficit Psy/Mental Status: Alert - Problem List & Annotations (1) Vaginal delivery SNOMED Code(s): 340104926 Code(s): O80 - ENCOUNTER FOR FULL-TERM UNCOMPLICATED DELIVERY Status: Acute Current Visit: Yes - Problem List Review Problem List Initiated/Reviewed/Updated: Yes - My Orders Last 24 Hours: My Active Orders 10/07/20 14:57 Patient Status [ADT] Routine May Shower [RC] ASDIRECTED Vital Signs [RC] PER UNIT ROUTINE Acetaminophen [Tylenol Extra Strength] 1,000 mg PO Q4H PRN Acetaminophen [Tylenol Extra Strength] 500 mg PO Q4H PRN Benzocaine/Menthol [Dermoplast Pain Relief 20%-0.5% [place]] 78 gm TOP ASDIRECTED PRN Docusate Sodium [Colace] 100 mg PO BID PRN Ibuprofen [Motrin] 400 mg PO Q4H PRN Ibuprofen [Motrin] 800 mg PO Q6H PRN Lanolin [Lansinoh HPA] See Dose Instructions TOP ASDIRECTED PRN bisacodyL [Dulcolax] 10 mg RECTAL ONETIME PRN oxyCODONE 5 mg PO Q2H PRN witch Nydia [Tucks] 1 pad TOP ASDIRECTED PRN Assess Lochia [WOMSER] Per Unit Routine Assess Uterine Involution [WOMSER] Per Unit Routine Peripheral IV Discontinue [OM.PC] Routine Resuscitation Status Routine 10/08/20 10:52 HEPATIC FUNCTION PANEL,HFP [CHEM] Routine - Assessment Assessment:: 35yo P3 s/p with Manual removal of placenta , PPD 1 , Normal BPs Mild Preclampsia - Normal BPs today Cr: 0.9 , LFT pending - Plan Plan:: Routine Preclamspsia precautions discussed , BP check in 1 week Pain control with tylenol and motrin Discharge home today
[2020-10-08 11:08] LABS: BILIRUBIN INDIRECT 0.2
[2020-10-08] MEDS: Docusate Sodium 100 MG Cap PO PRN (18:45)
--- NOTE | 2020-10-10 13:09 | OR ---
SURGEON: TRACEY CUNHA DATE OF PROCEDURE: 10/07/2020 PREOPERATIVE DIAGNOSES: 1. A 35-year-old G3, P2-0-0-2 at 38 weeks and 4 days in active labor, mild preeclampsia. 2. The patient was also group B streptococcus positive. 3. Also history of COVID positive on 09/27, asymptomatic. POSTOPERATIVE DIAGNOSES: 1. A 35-year-old G3, P2-0-0-2 at 38 weeks and 4 days in active labor, mild preeclampsia. 2. The patient was also group B streptococcus positive. 3. Also history of COVID positive on 09/27, asymptomatic. 4. Also marginal placenta. PROCEDURES: 1. Normal spontaneous vaginal delivery. 2. Manual removal of placenta. ESTIMATED BLOOD LOSS: 300. INTRAVENOUS FLUIDS: IM Pitocin given. NOTES AND FINDINGS: A live male delivered at 1407. scores are 8 and 9, weight is 3360 g. BRIEF HISTORY ABOUT THE PATIENT: She was 38-4/7 days, came in complaining of contraction. She was observed, and she was noted to be about 4 cm to 5 cm dilated. She was GBS positive, and she also had a history of recent COVID infection on 09/27. O2 saturation was normal. She received ampicillin for GBS prophylaxis. The patient was monitored, and she was noted to SROM on her own. The patient remained about 4 cm to 5 cm for about 3 to 4 hours. As a result, an IUPC was placed and Pitocin was started, and the patient then became fully dilated. Within the labor course, the patient was noted to have blood pressures of 130s to 150s over 80s to 90s. She denied any headache or blurry vision. PIH labs were done. She had elevated AST, ALT, and the protein-creatinine ratio was increased. DESCRIPTION OF PROCEDURE: With the patient being fully dilated, she was encouraged to push. With good pushing effort, she delivered the head, subsequently the anterior and posterior shoulder. The body of the baby was delivered. was placed on maternal abdomen. Cord clamping was performed. Cord blood gases were obtained. Placenta was attempted to be removed via controlled cord traction, but there was difficulty in removing the placenta, also the IV line was not working, so IM Pitocin 10 IM was given. With manual removal, the placenta was removed intact, looked and inspected, and was noted to be intact with a marginal insertion. After delivery of the placenta, perineum was inspected and was noted to be intact. The patient tolerated the procedure well. All instrument and pad counts were correct x2. RAMON RUBIO /[id number]
== END 2020-10-08 18:45 | disposition home or self-care (01) | DRG 560 ==
LOC: MW.OBCHECK 22:48 → MW.OB 22:52 → MW.OBCHECK 23:25 → OBSVTOIN 10-07 14:57 → MW.OB 10-07 17:47
PROVIDERS: ADMIT Obstetrics & Gynecology; ATTEND Obstetrics & Gynecology
PROC: 10E0XZZ Delivery of Products of Conception, External Approach (ICD-10-PCS; principal; 2020-10-07)
PROC: 10H07YZ Insertion of Other Device into Products of Conception, Via Natural or Artificial Opening (ICD-10-PCS; 2020-10-07)
PROC: 10D17Z9 Manual Extraction of Products of Conception, Retained, Via Natural or Artificial Opening (ICD-10-PCS; 2020-10-07)
PROC: 3E0R3BZ Introduction of Anesthetic Agent into Spinal Canal, Percutaneous Approach (ICD-10-PCS; 2020-10-07)
DX: O14.04 Mild to moderate pre-eclampsia, complicating childbirth (principal); Z37.0 Single live birth; O99.824 Streptococcus B carrier state complicating childbirth; O44.23 Partial placenta previa NOS or without hemorrhage, third trimester; O77.0 Labor and delivery complicated by meconium in amniotic fluid; Z3A.38 38 weeks gestation of pregnancy; Z86.16 Personal history of COVID-19
CPT/HCPCS: 01967; 36415; 51702; 59025; 59409; 80048; 80053; 80076; 82570; 82803; 84156; 84550; 85025; 85027; 86592; 86850; 86900; 86901; A9270-GY; J0290; J0690; J2590; J2795; J3010; J7120